=== PATIENT | male | born 1965 | race Hispanic/Latino ===

== ENCOUNTER 2022-08-30 05:56 | Observation (INO) | payer OTHER ==
--- NOTE | 2022-08-25 09:56 | RAD REPORT ---
EXAM DESCRIPTION: RAD - Chest Pa And Lat (2 Views) - 08/25/2022 9:46 am CLINICAL HISTORY: pre op for surgery Chest pain. COMPARISON: CHEST SINGLE VIEW dated 07/25/2013; CHEST SINGLE VIEW dated 11/28/2008 FINDINGS: There is a vague nodular appearing lesions seen in the left mid lung laterally. This appea rs new since 2014 comparative study. The heart is normal in size. No displaced fractures. IMPRESSION: New vague pulmonary nodular lesion in the lateral left mid lung. Recommend CT chest for further evaluation.
[2022-08-25 10:12] LABS: Specific Gravity 1.018 (1.005-1.030); Urine Bilirubin NEGATIVE (Negative); Urine Blood Negative (Negative); Urine Clarity Clear (Clear); Urine Color Light-Yellow (Yellow); Urine Glucose 1+ (Negative); Urine Protein NEGATIVE (Negative); Urine Urobilinogen Normal (Normal); Urine pH 5.5 (5.0-7.0)
[2022-08-25 10:16] LABS: Absolute Lymphocytes (CBC) 2.3 K/uL (0.7-4.9); Lymphocytes % 37.1 % (15.3-44.8); MCV 85.8 fL (80-100); MPV 10.6 fL (7.6-11.3); RBC Red Blood Cell Count 4.55 M/uL (4.33-5.43)
[2022-08-25 10:19] LABS: Protime INR 0.98
[2022-08-25 10:28] LABS: Albumin 3.8 g/dL (3.4-5.0); Bilirubin Total 0.7 mg/dL (0.2-1.0); Potassium 4.4 mEq/L (3.5-5.1); Protein, Total 7.6 g/dL (6.4-8.2)
--- NOTE | 2022-08-25 11:36 | EKG ---
Test Date: 2022-08-25 Test Time: 09:48:47 [place]ter: AMARIS MEASUREMENT RESULTS: Intervals: Rate: 82 IN: 124 QRSD: 80 QT: 352 QTc: 411 [place]: P: 44 IN: 124 QRS: 44 T: 26 INTERPRETIVE STATEMENTS: Normal sinus rhythm Low voltage QRS Borderline ECG Compared to ECG 07/25/2013 22:03:41 Low QRS voltage now present Electronically Signed On 08-25-22 11:35:25 CDT by Camron Vazquez
[2022-08-30] MEDS ORDERED: TRANEXAMIC ACID 1,000 MG/10 ML VIAL IV ONE (06:20)
[2022-08-30] MEDS ORDERED: BUPIVACAINE 0.75% (PF) 2 ML SP ONE (06:21)
[2022-08-30] MEDS ORDERED: EPINEPHRINE/PF 1 MG/ML AMP ONE (06:23)
[2022-08-30] MEDS ORDERED: CELECOXIB 100 MG CAPSULE ONE (06:23)
[2022-08-30] MEDS ORDERED: MORPHINE SULFATE/PF 1 MG/ML (10 ML AMP) ONE (06:23)
[2022-08-30] MEDS ORDERED: CEFAZOLIN SODIUM 2 GM/VIAL ONE (06:24)
[2022-08-30] MEDS ORDERED: GABAPENTIN 100 MG CAP ONE (06:24)
[2022-08-30] MEDS ORDERED: Oxycodone HCl/Acetaminophen 1 TAB TAB ONE (06:24)
[2022-08-30] MEDS ORDERED: ACETAMINOPHEN 500 MG TAB ONE (06:24)
[2022-08-30] MEDS ORDERED: NA CHLORIDE 0.9% 1,000 ML ONE ×3 (06:25→09:44)
[2022-08-30] MEDS ORDERED: MIDAZOLAM HCL 2 MG/2 ML INJ ONE (06:33)
[2022-08-30] MEDS ORDERED: LIDOCAINE 2% MPF 5 ML VIAL ONE (06:33)
[2022-08-30] MEDS ORDERED: propofoL 200 MG/20 ML VIAL IV ONE ×3 (06:33→09:14)
[2022-08-30] MEDS ORDERED: FENTANYL CITR 100 MCG/2 ML ONE (06:43)
[2022-08-30] MEDS ORDERED: Phenylephrine HCl 10 MG/ML 1 ML VIAL ONE ×2 (07:49→09:09)
[2022-08-30] MEDS ORDERED: ROCURONIUM 50 MG/5 ML VIAL IV ONE (08:14)
[2022-08-30] MEDS ORDERED: METOCLOPRAMIDE 10 MG/2mL INJ ONE (08:22)
--- NOTE | 2022-08-30 09:04 | RAD REPORT ---
EXAM DESCRIPTION: RAD - Hip Left 1 View - 08/30/2022 8:59 am CLINICAL HISTORY: Left hip surgery FINDINGS: Intraoperative film demonstrates hardware for left hip arthroplasty
[2022-08-30] MEDS ORDERED: EPHEDRINE SULF 50 MG/ML VIAL ONE (09:18)
[2022-08-30] MEDS ORDERED: KETOROLAC 30 MG/ML INJ ONE (09:50)
[2022-08-30] MEDS ORDERED: HYDROCODONE/APAP 7.5/325 MG TAB PO PRN (09:58)
[2022-08-30] MEDS ORDERED: DOCUSATE NA 100 MG CAP PO PRN (09:58)
--- NOTE | 2022-08-30 09:58 | P.BOP ---
Preoperative diagnosis: left hip arthritis after femoral neck malunion Postoperative diagnosis: same Primary procedure: left ROSA Estimated blood loss: 150 Anesthesia: General Transferred to: Recovery Room Condition: Good
[2022-08-30] MEDS ORDERED: DIPHENHYDRAMINE 50 MG/ML VIAL IV PRN (10:14)
--- OUTSIDE RECORDS SUMMARY | 2022-08-30 12:14 | XMS REPORT | Continuity of Care Document ---
:1965 Author Organization [facility] t Address [address] [place] [id number] Care Team Providers Name Role Phone Mohinder Willingham Attending Clinician Unavailable Problems This patient has no known problems. Allergies, Adverse Reactions, Alerts This patient has no known allergies or adverse reactions. Medications This patient has no known medications. Procedures This patient has no known procedures. Encounters Start End Encounter Admission Attending Care Care Encounter Source Date/Time Date/Time Type Type Clinicians Facility Department ID 2022-08-25 Outpatient HALEIGH Willingham [id number] Common 08:07:00 Mohinder [id number] [facility] Results This patient has no known results.
[2022-08-30 15:15] VITALS: BMI 34.4
[2022-08-30] MEDS: CEFAZOLIN 1 GM in NA CHLORIDE 0.9% 50 ML IVPB SCH (16:38)
[2022-08-30 16:40] LABS: Hematocrit 32.5 % (39.6-49.0)
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
[2022-08-31] MEDS: CEFAZOLIN 1 GM in NA CHLORIDE 0.9% 50 ML IVPB SCH ×2 (00:59→09:18)
[2022-08-31 05:06] VITALS: O2SAT 96
[2022-08-31 06:30] LABS: Hematocrit 30.9 % (39.6-49.0)
[2022-08-31] MEDS ORDERED: ENOXAPARIN 40 MG/0.4 ML SQ SCH (09:00)
[2022-08-31 16:06] VITALS: BP 134/65; TEMP 101.2
== END 2022-08-31 17:18 | disposition home or self-care (01) ==
LOC: OR 05:56 → 4TH 12:09
PROVIDERS: ADMIT Orthopaedic Surgery; ATTEND Orthopaedic Surgery
PROC: 0SRB0JA Replacement of Left Hip Joint with Synthetic Substitute, Uncemented, Open Approach (ICD-10-PCS; principal; 2022-08-30 07:00)
DX: M16.52 Unilateral post-traumatic osteoarthritis, left hip (principal)
CPT/HCPCS: 93005; 85025; 36415 ×2; 86900; 86850; 85610; 86901; 82947 ×4; 88305; 88311; 85730; 86920; 85018 ×2; 85014 ×2; 81003; 80053; 71046; 73501; 97110 ×2; 97116 ×2; 97161; 97530 ×2; 94760 ×3; 27130; J2704 ×3; J0171; J2765; J2370 ×2; J2001; J1650; J2250; J3010; J7030 ×3; J0690 ×3; G0378 ×3; 88304

== ENCOUNTER 2022-10-22 10:29 | Emergency (ER) | payer OTHER ==
--- OUTSIDE RECORDS SUMMARY | 2022-10-22 10:31 | XMS REPORT | Continuity of Care Document ---
:1965 Author Organization [facility] t Address [address] [place] [id number] Care Team Providers Name Role Phone Mohinder [...] Facility Department ID 2022-08-25 Outpatient HALEIGH Willingham [id number] Common 08:07:00 Mohinder [id number] [facility] Results This patient has no known results.
--- NOTE | 2022-10-22 11:38 | RAD REPORT ---
EXAM DESCRIPTION: RAD - Femur Left - 10/22/2022 11:25 am CLINICAL HISTORY: Left leg pain FINDINGS: Left hip prosthesis in place No acute fracture or dislocation Osteoporosis 6 centimeter bony density along medial upper left knee likely the sequela prior trauma
--- NOTE | 2022-10-22 12:56 | ER ---
Nurse's Notes [facility] Name: Lazaro Stephens Age: 57 yrs Sex: Male : 1965 Arrival Date: 10/22/2022 Time: 10:29 Bed 7 Private MD: Diagnosis: Fall (on) (from) unspecified stairs and steps;Pain in left knee;Unspecified injury of head, initial encounter Presentation: 10/22 10:32 Chief complaint: EMS states: fell going down 1ft step, had left hip replacement by Dr. elda Vazquez 08/29/22. Pt c/o pain to left knee, left hip, and left side of head, small hematoma noted to left side of head. 10:32 Coronavirus screen: At this time, the client does not indicate any symptoms associated aa5 with coronavirus-19. Ebola Screen: Patient denies travel to an Ebola-affected area in the 21 days before illness onset. Initial Sepsis Screen: Does the patient meet any 2 criteria? No. Patient's initial sepsis screen is negative. Does the patient have a suspected source of infection? No. Patient's initial sepsis screen is negative. Risk Assessment: Do you want to hurt yourself or someone else? Patient reports no desire to harm self or others. Onset of symptoms was October 22, 2022. 10:32 Acuity: ASHISH 3 aa5 10:32 Method Of Arrival: EMS: [facility] aa5 Historical: - Allergies: 10:46 No Known Allergies; aa5 - PMHx: 10:46 Diabetes mellitus; TBI; aa5 - PSHx: 10:46 L hip replacement 08/29/22; aa5 - Immunization history:: Adult Immunizations unknown. - Social history:: Smoking status: Patient denies any tobacco usage or history of. Screenin:35 [facility] ED Fall Risk Assessment (Adult) History of falling in the last 3 months, aa5 including since admission Yes- single mechanical fall (1 pt) Confusion or Disorientation No (0 pts) Intoxicated or Sedated No (0 pts) Impaired Gait Yes (1 pt) Mobility Assist Device Used Yes (1 pt) Altered Elimination No (0 pt) Score/Fall Risk Level 3 or more points = High Risk Oriented to surroundings, Maintained a safe environment, Educated pt \T\ family on fall prevention, incl call for assistance when getting out of bed. Abuse screen: Denies threats or abuse. Nutritional screening: No deficits noted. Tuberculosis screening: No symptoms or risk factors identified. Assessment: 10:32 General: Appears comfortable, Behavior is calm, cooperative. Pain: Complains of pain in aa5 left knee, left hip, and left side of head Quality of pain is described as aching, Pain began today post-fall Is continuous. Neuro: Level of Consciousness is awake, alert, obeys commands, Oriented to person, place, time, situation. Cardiovascular: Heart tones S1 S2 present Rhythm is regular. Respiratory: Airway is patent Respiratory effort is even, unlabored, Respiratory pattern is regular, symmetrical. GI: No signs and/or symptoms were reported involving the gastrointestinal system. : No signs and/or symptoms were reported regarding the genitourinary system. EENT: No signs and/or symptoms were reported regarding the EENT system. Derm: Skin is pink, warm \T\ dry. Musculoskeletal: Swelling present in left knee Reports pain in left knee and left hip. Injury Description: small hematoma (quater sized) with abrasion noted to left side of head. 12:00 Reassessment: Patient is alert, oriented x 3, equal unlabored respirations, skin aa5 warm/dry/pink. Pt requesting pain medication, will notify provider.. 14:06 Reassessment: Patient is alert, oriented x 3, equal unlabored respirations, skin aa5 warm/dry/pink. Vital Signs: 10:32 BP 151 / 103; Pulse 86; Resp 16 S; Temp 97.8(TE); Pulse Ox 97% on R/A; Weight 99.79 kg aa5 (R); Height 5 ft. 7 in. (R); 12:00 BP 138 / 67; Pulse 74; Resp 18 S; Pulse Ox 97% on R/A; aa5 14:00 BP 148 / 67; Pulse 73; Resp 17 S; Pulse Ox 98% on R/A; aa5 10:32 Body Mass Index 34.46 (99.79 kg, 170.18 cm) aa5 ED Course: 10:32 Patient arrived in ED. kj1 10:32 Arm band placed on Patient placed in an exam room, on a stretcher. aa5 10:32 Patient has correct armband on for positive identification. Bed in low position. Call aa5 light in reach. Side rails up X2. Adult w/ patient. 10:37 Lissa Eng [facility]-C [facility]. snw 10:37 Zeke Burris MD is Attending Physician. snw 10:44 Sobeida Nava, RN is Primary Nurse. aa5 10:46 Triage completed. aa5 11:27 Femur Left XRAY In Process Unspecified. EDMS 12:53 Ruel Vazquez MD is Referral Physician. snw 14:06 No provider procedures requiring assistance completed. Patient did not have IV access aa5 during this emergency room visit. Administered Medications: 12:58 Drug: Hydrocodone-Acetaminophen PO (7.5 mg-325 mg) 1 tabs Route: PO; aa5 14:06 Follow up: Response: No adverse reaction aa5 Medication: 12:36 VIS not applicable for this client. aa5 Outcome: 12:55 Discharge ordered by MD. snw 14:07 Discharged to home via wheelchair, with significant other. aa5 14:07 Condition: stable 14:07 Discharge instructions given to patient, significant other, Instructed on discharge instructions, follow up and referral plans. medication usage, Demonstrated understanding of instructions, follow-up care, medications, Prescriptions given X 1. 14:07 Patient left the ED. aa5 Signatures: Dispatcher [employer] EDMA Lissa Eng FNP-C MANAGER SALT-Csnw Sobeida Nava, RN RN aa5 Kiley Lara kj1 Corrections: (The following items were deleted from the chart) 10:47 10:46 PSHx: L hip; aa5 aa5
--- NOTE | 2022-10-22 12:56 | EDPHYS ---
Physician Documentation [facility] Name: Lazaro Stephens Age: 57 yrs Sex: Male : 1965 Arrival Date: 10/22/2022 Time: 10:29 Bed 7 Private MD: ED Physician Zeke Burris HPI: 10/22 10:47 This 57 yrs old Male presents to ER via EMS with complaints of Fall Injury. snw 10:47 Details of fall: The patient fell from a height, down approximately 1 stairs. Onset: snw The symptoms/episode began/occurred acutely, just prior to arrival. Associated injuries: The patient sustained injury to the head, contusion, left leg, decreased range of motion, swelling. pt had hip replacement on left one month ago per Dr. Vazquez, pt was ambulating with cane. Cane slipped and pt fell onto left side into living room, no LOC. as noted. Historical: - Allergies: 10:46 No Known Allergies; aa5 - PMHx: 10:46 Diabetes mellitus; TBI; aa5 - PSHx: 10:46 L hip replacement 08/29/22; aa5 - Immunization history:: Adult Immunizations unknown. - Social history:: Smoking status: Patient denies any tobacco usage or history of. ROS: 10:46 Constitutional: Negative for fever, chills, and weight loss, Eyes: Negative for injury, snw pain, redness, and discharge, ENT: Negative for injury, pain, and discharge, Neck: Negative for injury, pain, and swelling, Cardiovascular: Negative for chest pain, palpitations, and edema, Respiratory: Negative for shortness of breath, cough, wheezing, and pleuritic chest pain, Abdomen/GI: Negative for abdominal pain, nausea, vomiting, diarrhea, and constipation, Back: Negative for injury and pain, : Negative for injury, bleeding, discharge, and swelling, Skin: Negative for injury, rash, and discoloration, Neuro: Negative for headache, weakness, numbness, tingling, and seizure, Psych: Negative for depression, anxiety, suicide ideation, homicidal ideation, and hallucinations. 10:46 MS/extremity: Positive for injury or acute deformity, decreased range of motion, swelling, tenderness, of the left knee. Exam: 10:46 Constitutional: This is a well developed, well nourished patient who is awake, alert, snw and in no acute distress. Head/Face: Normocephalic, atraumatic. Eyes: Pupils equal round and reactive to light, extra-ocular motions intact. Lids and lashes normal. Conjunctiva and sclera are non-icteric and not injected. Cornea within normal limits. Periorbital areas with no swelling, redness, or edema. ENT: Nares patent. No nasal discharge, no septal abnormalities noted. Tympanic membranes are normal and external auditory canals are clear. Oropharynx with no redness, swelling, or masses, exudates, or evidence of obstruction, uvula midline. Mucous membranes moist. Neck: Trachea midline, no thyromegaly or masses palpated, and no cervical lymphadenopathy. Supple, full range of motion without nuchal rigidity, or vertebral point tenderness. No Meningismus. Chest/axilla: Normal chest wall appearance and motion. Nontender with no deformity. No lesions are appreciated. Cardiovascular: Regular rate and rhythm with a normal S1 and S2. No gallops, murmurs, or rubs. Normal PMI, no JVD. No pulse deficits. Respiratory: Lungs have equal breath sounds bilaterally, clear to auscultation and percussion. No rales, rhonchi or wheezes noted. No increased work of breathing, no retractions or nasal flaring. Abdomen/GI: Soft, non-tender, with normal bowel sounds. No distension or tympany. No guarding or rebound. No evidence of tenderness throughout. Back: No spinal tenderness. No costovertebral tenderness. Full range of motion. Skin: Warm, dry with normal turgor. Normal color with no rashes, no lesions, and no evidence of cellulitis. Neuro: Awake and alert, GCS 15, oriented to person, place, time, and situation. Cranial nerves II-XII grossly intact. Motor strength 5/5 in all extremities. Sensory grossly intact. Cerebellar exam normal. Normal gait. Psych: Awake, alert, with orientation to person, place and time. Behavior, mood, and affect are within normal limits. 10:46 Musculoskeletal/extremity: Extremities: grossly normal except: noted in the left quadriceps and left knee: decreased ROM, pain, swelling. Vital Signs: 10:32 BP 151 / 103; Pulse 86; Resp 16 S; Temp 97.8(TE); Pulse Ox 97% on R/A; Weight 99.79 kg aa5 (R); Height 5 ft. 7 in. (R); 12:00 BP 138 / 67; Pulse 74; Resp 18 S; Pulse Ox 97% on R/A; aa5 14:00 BP 148 / 67; Pulse 73; Resp 17 S; Pulse Ox 98% on R/A; aa5 10:32 Body Mass Index 34.46 (99.79 kg, 170.18 cm) aa5 MDM: 10:37 Patient medically screened. snw 10:48 Differential diagnosis: closed head injury, contusion, sprain, strain, femur fx. Data snw reviewed: vital signs, nurses notes. Historians other than the Patient: EMS: [facility] and Patient's . Counseling: I had a detailed discussion with the patient and/or guardian regarding: the historical points, exam findings, and any diagnostic results supporting the discharge/admit diagnosis, the presence of at least one elevated blood pressure reading (>120/80) during this emergency department visit. Awaiting: X-ray results, pt encouraged to let me know if he wants pain medication... for now, pt has declined. 12:55 Special discussion: I have referred the patient to see his PCP for further evaluation snw of high blood pressure. Based on the patient's history, exam and DX evaluation, there is no indication for emergent intervention or inpatient TX. It is understood by the patient/guardian that if the SXs persist or worsen they need to return immediately for re-evaluation. Based on the history and exam findings, there is no indication for further emergent testing or inpatient evaluation. I discussed with the patient/guardian the need to see the orthopedic surgeon for further evaluation of the symptoms. 10/22 10:45 Order name: Femur Left XRAY; Complete Time: 11:40 snw 10/22 13:49 Order name: Lucio wrap-joint; Complete Time: 14:06 snw Administered Medications: 12:58 Drug: Hydrocodone-Acetaminophen PO (7.5 mg-325 mg) 1 tabs Route: PO; aa5 14:06 Follow up: Response: No adverse reaction aa5 Disposition Summary: 10/22/22 12:55 Discharge Ordered Location: Home snw Condition: Stable snw Diagnosis - Fall (on) (from) unspecified stairs and steps snw - Pain in left knee snw - Unspecified injury of head, initial encounter snw Followup: snw - With: Emergency Department - When: As needed - Reason: Worsening of condition Followup: snw - With: Ruel Vazquez MD - When: 2 - 3 days - Reason: Recheck today's complaints, Continuance of care, Re-evaluation by your physician Discharge Instructions: - Discharge Summary Sheet snw - Joint Pain snw - Head Injury, Adult snw - How to Use a Knee Brace snw - Acute Knee Pain, Adult snw - How to Use Cold Therapy snw Forms: - Medication Reconciliation Form snw - Thank You Letter snw - Antibiotic Education snw - Prescription Opioid Use snw Prescriptions: - Tramadol 50 mg Oral Tablet - take 1 tablet by ORAL route every 8 hours as needed; 12 tablet; Refills: 0, snw Product Selection Permitted Signatures: Dispatcher [employer] EDNH Lissa Eng, ARABELLA-C TIMBER SELECTOR-[place] Sobeida Nava RN RN aa5 Corrections: (The following items were deleted from the chart) 10:47 10:46 PSHx: L hip; aa5 aa5 12:58 11:44 Knee Immobilizer ordered. snw aa5
[2022-10-22] MEDS ORDERED: HYDROCODONE/APAP 7.5/325 MG TAB ONE (13:00)
[2022-10-22 14:12] VITALS: TEMP 97.8
[2022-10-22 14:14] VITALS: BP 148/67; O2SAT 98
== END 2022-10-22 14:07 | disposition home or self-care (01) ==
LOC: ER 10:29
DX: M25.562 Pain in left knee (principal); S09.90XA Unspecified injury of head, initial encounter; W10.9XXA Fall (on) (from) unspecified stairs and steps, initial encounter; Z96.642 Presence of left artificial hip joint
CPT/HCPCS: 99284

== ENCOUNTER 2023-09-05 10:57 | Emergency (ER) | payer OTHER ==
--- OUTSIDE RECORDS SUMMARY | 2023-09-05 10:59 | XMS REPORT | Continuity of Care Document ---
Author Name Unknown Address [address] [facility] [address] [place] [address] [facility] thconnect Address [address] [facility] [place] [address] Care Team Providers Care Bilingual Sales Representative Name Role Phone LANCE PEARSON Primary Care Physician Unavaila Mohinder Maurice Attending Clinician Unavailable Keyona Puente MD Attending Clinician KEYONA PUENTE Attending Clinician UnavailKEYONA Hair Attending Clinician Unavailkarime tay Lab, Ang - Db Attending Clinician Unavailable Doctor Unassigned, Emet Attending Clinician U Otoniel Tipton Attending Clinician OTONIEL SAGE Attending Clinician Unavailable OTONIEL SAGE Admitting Clinician Unavailable Payers Payer Name Policy Type Policy Number Effective Date Expirati on Date Source Allergies, Adverse Reactions, Alerts Allergy Name Allergy Type Status Severity Reaction(s) Onset Date Inactive Date Treating Clinician Comments Source NO KNOWN ALLERGIE S Drug Class Active [facility] Social History Social Habit Start Date Stop Date Quantity Comments Source Sexual orientation U [facility] History of Social function 2023-07-03 00:00:00 2023-07-03 00:00:00 [facility] Sex Assigned At 1965 00:00:00 1965 00:00:00 [facility] Smoking Status Start Date Stop Date Source Tobacco smoking consumption unknown [facility] Medications Ordered Medication Name Filled Medication Name Start Date Stop Date Current Medication? Ordering Clinician Indication Dosage Frequency Signature (SIG) Comments Components Source diclofenac 75 mg EC tablet 07-20 00:00: 00 Yes 75mg Take 1 tablet by mouth in the morning and 1 tablet in the evening. Take with meals. [facility] diclofenac 75 mg EC tablet 07-18 00:00: 00 Yes 75mg Take 1 tablet by mouth in the morning and 1 tablet in the evening. Take with meals. [facility] ibuprofen 600 mg tablet 10-23 00:00: 00 Yes [id number] 600mg Take 1 tablet by mouth every 8 (eight) hours as needed for Pain (scale 4-6). [facility] Immunizations Ordered Immunization Name Filled Immunization Name Date Status Comments Source SARS-COV-2 COVID-19 PFIZER VACCINE 2020-08-08 00:00:00 Completed [facility] SARS-COV-2 COVID-19 PFIZER VACCINE 2020-07-18 00:00:00 Completed [facility] SARS-COV-2 COVID-19 PFIZER VACCINE Unknown Completed [facility] SARS-COV-2 COVID-19 PFIZER VACCINE Unknown Completed [facility] SARS-COV-2 COVID-19 PFIZER VACCINE Unknown Completed [facility] SARS-COV-2 COVID-19 PFIZER VACCINE Unknown Completed [facility] SARS-COV-2 COVID-19 PFIZER VACCINE Unknown Completed [facility] SARS-COV-2 COVID-19 PFIZER VACCINE Unknown Completed [facility] SARS-COV-2 COVID-19 PFIZER VACCINE Unknown Completed [facility] SARS-COV-2 COVID-19 PFIZER VACCINE Unknown Completed [facility] SARS-COV-2 COVID-19 PFIZER VACCINE Unknown Completed [facility] SARS-COV-2 COVID-19 PFIZER VACCINE Unknown Completed [facility] SARS-COV-2 COVID-19 PFIZER VACCINE Unknown Completed [facility] SARS-COV-2 COVID-19 PFIZER VACCINE Unknown Completed [facility] SARS-COV-2 COVID-19 PFIZER VACCINE Unknown Completed [facility] SARS-COV-2 COVID-19 PFIZER VACCINE Unknown Completed [facility] SARS-COV-2 COVID-19 PFIZER VACCINE Unknown Completed [facility] SARS-COV-2 COVID-19 PFIZER VACCINE Unknown Completed [facility] SARS-COV-2 COVID-19 PFIZER VACCINE Unknown Completed [facility] SARS-COV-2 COVID-19 PFIZER VACCINE Unknown Completed [facility] Vital Signs Vital Name Observation Time Observation Value Comments S karlee Body height 2023-07-19 20:27:00 170.2 cm [facility] Body weight 2023-07-19 20:27:00 96.616 kg [facility] BMI 2023-07-19 20:27:00 33.36 kg/m2 [facility] Body height 2023-07-03 22:07:00 170.2 cm [facility] Body weight 2023-07-03 22:07:00 90.719 kg [facility] BMI 2023-07-03 22:07:00 31.32 kg/m2 [facility] Systolic blood pressure 2022-10-24 01:45:00 146 mm[Hg] [facility] Diastolic blood pressure 2022-10-24 01:45:00 83 mm[Hg] [facility] Heart rate 2022-10-24 01:45:00 85 /min [facility] Respiratory rate 2022-10-24 01:45:00 18 /min [facility] Oxygen saturation in Arterial blood by Pulse oximetry 2022-10-24 01:45:00 98 /min [facility] Body temperature 2022-10-23 22:20:00 36.78 Mary Kay [facility] Body height 2022-10-23 22:20:00 170.2 cm [facility] Body weight 2022-10-23 22:20:00 99.791 kg [facility] BMI 2022-10-23 22:20:00 34.46 kg/m2 [facility] Procedures Procedure Date / Time Performed Performing Clinicia n Source ASSIGNMENT OF BENEFITS 2023-07-03 22:03:43 Docto r Unassigned, Emet [facility] NOTICE OF PRIVACY PRACTICES 2022-10-23 22:16:49 Doctor Unassigned, Emet [facility] CONSENT/REFUSAL FOR DIAGNOSIS AND TREATMENT 2022-10-23 22:16:31 Doctor Unassigned, Emet [facility] Encounters Start Date/Time End Date/Time Encounter Type Admission Type Attending [facility] Facility Care Department Encounter ID Source 2022-11-11 08:49:01 [facility] [id number] [facility] 2022-08-25 08:07:00 [facility] [id number] [facility] 2023-07-20 00:00:00 2023-07-20 00:00:00 Telephone Keyona Puente [facility] 1.2.840.114 350.1.13.10 4.2.7.2.686 [id number] [facility] 2023-07-19 16:15:00 2023-07-19 16:15:00 Office Visit Keyona Puente [facility] 1.2.840.114 350.1.13.10 4.2.7.2.686 [id number] [facility] 2023-07-19 16:15:00 2023-07-19 16:06:21 Outpatient KEYONA MONTANO [facility] [id number] [facility] 2023-07-13 15:15:00 2023-07-13 15:15:00 Outpatient KEYONA MONTANO [facility] [id number] [facility] 2023-07-12 15:00:00 2023-07-12 15:00:00 Outpatient KEYONA MONTANO [facility] [id number] [facility] 2023-07-04 14:45:00 2023-07-04 15:00:00 Injection Molding Operator Visit Lab, Ang - Db [facility]ente, [facility] 1.2840.114 350.1.13.10 4.2.7.2.686 [id number] [facility] 2023-07-04 14:45:00 2023-07-04 14:45:00 Outpatient R KEYONA PUENTE C[facility]IG [facility] [id number] [facility] 2023-07-03 16:33:27 2023-07-03 23:59:00 Outpatient R KEYONA PUENTE [facility] [id number] [facility] 2023-07-03 16:33:27 2023-07-03 23:59:00 [facility] 1.2840.114 350.1.13.10 4.2.7.2.686 [id number] [facility] 2023-07-03 16:06:24 2023-07-03 16:32:00 Hospital Encounter Keyona Puente [facility] ANGELIQUE?[facility] 1.2.840.114 350.1.13.10 4.2.7.2.686 [id number] [facility] 2023-07-03 15:30:00 2023-07-03 15:45:00 Office Visit Keyona Puente [facility] 1.2840.114 350.1.13.10 4.2.7.2.686 [id number] [facility] 2023-07-03 00:00:00 2023-07-03 00:00:00 Orders Only Doctor Unassigned, Emet [facility] 1.2840.114 350.1.13.10 4.2.7.2.686 [id number] [facility] 2022-10-23 17:21:00 2022-10-23 20:59:00 Emergency Otoniel Sage [facility] 1.2.840.114 350.1.13.10 4.2.7.2.686 [id number] [facility] 2022-10-23 17:21:00 2022-10-23 20:59:00 Emergency X OTONIEL SAGE [facility] ERT [id number] [facility] 2009-07-21 00:00:00 2009-07-21 15:33:48 Outpatient [facility] [id number] [facility] Notes Date/Time Note Provider Source 2023-07-21 09:30:23 kISfglpWLky68JDr28Az YC5+tn+Ly5YX0g dO9CuKFjIGCfoRYzcBTqez52rYquXu6804 -03-22T09:30:23 Meds sent to [facility] 17070-3Zxactsaam encounter RhozGY6924-04-78U14:30:34Telephone encounter NoteTXT1.2.840.066053.1.13.104.2.7 .2.417090|[id number] for patient dkae55157-4CdpkEGLFYZVWZGBXcrsydhp d C-CDA narrative [id number] N Davis MA[address] Md[id number] 40SGGBHAVJJVTTIZKBVWGEIV4340-31-97 T09:30:341.2.840.053018.1.72.3.15| 1.2.840.403704.1.13.104.2.7.2.7278 [id number] Kimi Puckett MA [facility] 2023-07-20 16:39:57 kLAgTnWSu9CL+Hd3GoQx izap4jCeW23m4H rg5J8P09aCY+2LFZQY1zeDKAU8wngA3308 -03-21T16:39:57 Donte Stephens is a 57 year old malePt Rx was mistakenly sent to a pharm in [place].Please send Rx diclofenac 75 mg EC tabletTo [facility] [id number] [address] Apo: [phone] signed by Maria Elena Sandoval at 07/20/2023 4:43 PM SGV95456-2Besaphiji encounter KywtDM2233-21-76K39:43:32Telephone encounter NoteTXT1.2.840.300236.1.13.104.2.7 .2.399456|[id number] for patient kasr43599-7YakqMDHKJIOHQTQQqhgrmmk d C-CDA narrative text[address] Iu[id number] 48UJMSLVGYWSBWPOYOJVEAAW9621-64-26 T16:43:321.2.840.041458.1.72.3.15| 1.2.840.046467.1.13.104.2.7.2.7278 [id number] [facility] 2023-07-04 14:45:00 OTekV0MEQVY7lJt9GRsd /pCMMfp8oxLwue JH0pnYP04p4qOeBwLfeXVQvKmH0pN16914 -03-05T14:45:00 Images from the original note were not included.Venipuncture collection performed by clean technique on the right anticubitus. Total of 1 attempts were made. Slight pressure and a bandage/dressing were applied to the site(s). The patient experienced no complications. The following specimens were processed according to instructions and sent to [facility] laboratories per lab order on 07/04/2023:LT BLUESST 1REDLAV 1PPTDK GREEN (LiHep)DK GREEN (SodH)GRAYDK BLUE (K2)DK BLUE (S)ACDBlood CultureNIPT/NTD 23868-9Veced UwxvVG2578-54-48Q02:57:02Nurse NoteTXT1.2.840.281636.1.13.104.2.7 .2.299710|[id number] for patient zlyo43169-8Aoded NoteLNNARRATIVEFormatted C-CDA narrative textUT[address] RbbwT[id number] 82JCMDQWQMVZZBEEYCOADZFU3114-98-59 T14:57:021.2.840.431967.1.72.3.15| 1.2.840.575530.1.13.104.2.7.2.7278 [id number] [facility]"
[2023-09-05] MEDS ORDERED: MORPHINE 4 MG/ML SYR ONE ×2 (11:45→15:05)
[2023-09-05 11:49] LABS: Absolute Lymphocytes (CBC) 0.8 K/uL (0.7-4.9); Absolute Monocytes 0.5 K/uL (0.1-1.3); Hematocrit 35.7 % (39.6-49.0); Hemoglobin 11.9 g/dL (13.6-17.9); Lymphocytes % 6.2 % (15.3-44.8); MCH 28.9 pg (27.0-35.0); MCHC 33.5 g/dL (32.0-36.0); MCV 86.4 fL (80-100); MPV 10.2 fL (7.6-11.3); Monocytes % 3.7 % (3.3-12.3); Neutrophils % 90.1 % (41.7-73.7); Platelets 171 thou/uL (152-406); RBC Red Blood Cell Count 4.13 M/uL (4.33-5.43); Red Cell Distribution Width 14.4 % (12.1-15.2)
[2023-09-05 12:04] LABS: Anion Gap 4.1 mEq/L (5.0-15.0); Potassium 4.1 mEq/L (3.5-5.1)
[2023-09-05 12:58] LABS: Blood Morphology Comment NOT SEEN (NOT SEEN); Platelet Estimate ADEQ; White Blood Cell Scan OK (OK)
--- NOTE | 2023-09-05 13:15 | RAD REPORT ---
EXAM DESCRIPTION: RADChest Single View09/05/2023 12:43 pm CLINICAL HISTORY: fall COMPARISON: Chest Pa And Lat (2 Views) dated 08/25/2022; CHEST SINGLE VIEW dated 07/25/2013; CHEST SIN GLE VIEW dated 11/28/2008 TECHNIQUE: Portable AP view of the chest. FINDINGS: The lungs are clear. No pneumothorax or effusion. The cardiomediastinal contours are unre markable. Stable deformities along the posterior right ribs, likely relating to healed fractures. IMPRESSION: No acute cardiopulmonary process.
--- NOTE | 2023-09-05 13:17 | RAD REPORT ---
EXAM DESCRIPTION: RAD - Femur Left - 09/05/2023 12:43 pm CLINICAL HISTORY: L femur injury COMPARISON: Femur Left dated 10/22/2022 TECHNIQUE: Left femur, 2 views. FINDINGS: Left total hip arthroplasty in place. Displaced proximal femoral metaphysis fracture study just below the level of the intertrochanteric junction, with an oblique component extending approxim ately to the level of the lower tip of the femoral stem. There is no dislocation or periosteal react ion noted. Advanced degenerative changes at the level of the knee with osteopenia again seen. No acut e or suspicious bony finding. IMPRESSION: Oblique displaced proximal femoral fracture as above.
--- NOTE | 2023-09-05 13:20 | RAD REPORT ---
EXAM DESCRIPTION: Pelvis - 09/05/2023 12:42 pm CLINICAL HISTORY: L hip injury COMPARISON: No comparisons TECHNIQUE: Internal and external rotation views of the right shoulder were obtained. FINDINGS: Proximal left femoral fracture is better visualized on dedicated left femoral radiographs. Visualized pelvic ring is intact. Left total hip arthroplasty in satisfactory position. There is no other acute fracture or dislocation. AC joint is normal in appearance. Mild right hip joint degenerat tamar changes. No acute or suspicious findings. IMPRESSION: Proximal left femoral fracture is better visualized on dedicated left femoral radiograph s. No other acute findings.
--- NOTE | 2023-09-05 13:55 | EDPHYS ---
Physician Documentation [facility] Name: Lazaro Stephens Age: 58 yrs Sex: Male : 1965 Arrival Date: 09/05/2023 Time: 10:57 Bed 19 Private MD: ED Physician Maverick Avendano HPI: 09/04 11:27 This 58 yrs old Male presents to ER via Ambulatory with complaints of Fall ec2 Injury. 11:27 Patient arrives today for evaluation after a fall. States that he had fallen and ec2 injured his left hip. Patient reports history of arthroplasty. Patient reports no head strike, no LOC, no blood thinners. Patient reports no chest pain or difficulty breathing, denies abdominal pain or nausea or vomiting.. Historical: - Allergies: 11:08 No Known Allergies; nj1 - PMHx: 11:08 diabetes mellitus; TBI; Hypertensive disorder; nj1 - PSHx: 11:08 L hip replacement 08/29/22; nj1 - Immunization history:: Client reports receiving the 2nd dose of the Covid vaccine. - Infectious Disease History:: Denies. - Social history:: Smoking status: Patient denies any tobacco usage or history of. ROS: 11:27 Constitutional: as per hpi ec2 Exam: 11:27 Constitutional: GEN: NAD Head: atraumatic Eyes: EOMI Ears: External ears are ec2 normal. CV: regular rate LUNGS: no respiratory distress ABD: non-distended SKIN: no evidence of rashes MSK: Left hip TTP, left proximal femur TTP, intact distal neurovascular status, no obvious deformities or dislocations evident. NEURO: moves all extremities equally Vital Signs: 10:59 BP 160 / 69; Pulse 77; Resp 18; Temp 97.9(O); Pulse Ox 97% on R/A; Weight 99.79 kg; nj1 Height 5 ft. 7 in. ; Pain 10/10; 12:00 BP 143 / 69; Pulse 80; Resp 16; Pulse Ox 100% ; nj1 12:45 Pain 5/10; nj1 12:46 BP 138 / 73; Pulse 72; Resp 17; Pulse Ox 100% ; nj1 14:26 BP 151 / 79; Pulse 102; Resp 17; Pulse Ox 100% ; nj1 10:59 Body Mass Index 34.46 (99.79 kg, 170.18 cm) nj1 10:59 Pain Scale: Adult nj1 12:45 Pain Scale: Adult nj1 MDM: 11:26 Patient medically screened. ec2 11:27 Data reviewed: vital signs. ED course: Patient arrives today for evaluation of a left ec2 hip injury. Examination remarkable for well-appearing nontoxic dividual is otherwise in no acute distress with a reassuring examination. Will obtain radiographs of the left hip and femur. Evaluating for bony fracture, contusion. Doubt C-spine injury or L-spine injury given lack of pain at these areas.. 13:30 ED course: Pelvis x-ray and femur x-ray show proximal femur fracture, within the ec2 instrumentation. . 13:53 ED course: I discussed case with Dr. Vazquez, orthopedics who recommends transfer. He ec2 was initial surgeon who performed the prosthesis.. 09/04 11:27 Order name: CBC with Diff; Complete Time: 13:00 ec2 09/04 11:27 Order name: BMP; Complete Time: 12:10 ec2 09/04 12:59 Order name: CBC Smear Scan; Complete Time: 13:00 EDMS 09/04 11:27 Order name: Pelvis XRAY; Complete Time: 13:28 ec2 09/04 11:27 Order name: Femur Left XRAY; Complete Time: 13:28 ec2 09/04 12:36 Order name: CXR XRAY; Complete Time: 13:28 ec2 Administered Medications: 11:51 Drug: morphine IVP or IV 4 mg IVP once over 4 mins Route: IVP; Infused Over: 4 mins; nj1 Site: left forearm; 12:45 Follow up: Pain 5/10 Adult; Response: No adverse reaction; Pain is decreased nj1 15:09 Drug: morphine IVP or IV 4 mg IVP once over 4 mins Route: IVP; Infused Over: 4 mins; kc6 Site: right forearm; Disposition Summary: 09/05/23 13:54 Transfer Ordered Notes: Transfer Location: Other Acute Care Facility ec2 Reason: Higher level of care ec2 Condition: Stable ec2 Problem: new ec2 Symptoms: have improved ec2 Accepting Physician: transferring doc(09/05/23 15:13) kc6 Diagnosis - Fracture of shaft of femur ec2 - Intertrochanteric fracture of femur ec2 Forms: - Medication Reconciliation Form ec2 - SBAR form ec2 Signatures: Dispatcher [employer] EDBernie Dumont RN RN kc6 Laxmi Mares RN RN nj1 Maverick Avendano MD MD ec2 Corrections: (The following items were deleted from the chart) 11:27 11:27 Femur Left+RAD.RAD.BRZ ordered. EDMS EDMS 12:36 12:36 Chest Single View+RAD.RAD.BRZ ordered. EDMS EDMS 15:13 13:54 transferring doc ec2 kc6
--- NOTE | 2023-09-05 13:55 | ER ---
Nurse's Notes [facility] Name: Lazaro Stephens Age: 58 yrs Sex: Male : 1965 Arrival Date: 09/05/2023 Time: 10:57 Bed 19 Private MD: Diagnosis: Fracture of shaft of femur;Intertrochanteric fracture of femur Presentation: 09/04 10:59 Chief complaint: EMS states: Fall this morning at home. Complaining of left upper leg nj1 pain. 10:59 Coronavirus screen: Vaccine status: Patient reports receiving the 2nd dose of the covid nj1 vaccine. Ebola Screen: Patient denies travel to an Ebola-affected area in the 21 days before illness onset. Initial Sepsis Screen: Does the patient meet any 2 criteria? No. Patient's initial sepsis screen is negative. Does the patient have a suspected source of infection? No. Patient's initial sepsis screen is negative. Risk Assessment: Do you want to hurt yourself or someone else? Patient reports no desire to harm self or others. Onset of symptoms was September 05, 2023 at 06:00. 10:59 Method Of Arrival: Ambulatory [facility] 10:59 Acuity: ASHISH 3 [facility] Historical: - Allergies: 11:08 No Known Allergies; nj1 - PMHx: 11:08 diabetes mellitus; TBI; Hypertensive disorder; nj1 - PSHx: 11:08 L hip replacement 08/29/22; nj1 - Immunization history:: Client reports receiving the 2nd dose of the Covid vaccine. - Infectious Disease History:: Denies. - Social history:: Smoking status: Patient denies any tobacco usage or history of. Screenin:12 [facility] ED Fall Risk Assessment (Adult) History of falling in the last 3 months, [facility] including since admission No falls in past 3 months (0 pts) Confusion or Disorientation No (0 pts) Intoxicated or Sedated No (0 pts) Impaired Gait No (0 pts) Mobility Assist Device Used No (0 pt) Altered Elimination No (0 pt) Score/Fall Risk Level 0 - 2 = Low Risk Oriented to surroundings, Maintained a safe environment, Hourly rounding (assess needs \T\ fall precautionary measures) done. Abuse screen: Denies threats or abuse. Denies injuries from another. Nutritional screening: No deficits noted. Tuberculosis screening: No symptoms or risk factors identified. Assessment: 11:09 General: Appears in no apparent distress. comfortable, Behavior is calm, cooperative, nj1 appropriate for age. Pain: Complains of pain in left leg Pain currently is 10 out of 10 on a pain scale. Neuro: Level of Consciousness is awake, alert, obeys commands, Oriented to person, place, time, situation, Denies dizziness. Cardiovascular: Patient's skin is warm and dry. Respiratory: Airway is patent Respiratory effort is even, unlabored. Musculoskeletal: Reports pain in upper leg, left. 12:47 Reassessment: Patient appears in no apparent distress at this time. Patient and/or nj1 family updated on plan of care and expected duration. Pain level reassessed. Patient is alert, oriented x 3, equal unlabored respirations, skin warm/dry/pink. 14:27 Reassessment: Patient appears in no apparent distress at this time. Patient and/or nj1 family updated on plan of care and expected duration. Pain level reassessed. Patient is alert, oriented x 3, equal unlabored respirations, skin warm/dry/pink. 14:57 Reassessment: EMS here to transport patient. Report given to Otis Solano EMT. [facility] Vital Signs: 10:59 BP 160 / 69; Pulse 77; Resp 18; Temp 97.9(O); Pulse Ox 97% on R/A; Weight 99.79 kg; nj1 Height 5 ft. 7 in. ; Pain 10/10; 12:00 BP 143 / 69; Pulse 80; Resp 16; Pulse Ox 100% ; nj1 12:45 Pain 5/10; nj1 12:46 BP 138 / 73; Pulse 72; Resp 17; Pulse Ox 100% ; nj1 14:26 BP 151 / 79; Pulse 102; Resp 17; Pulse Ox 100% ; nj1 10:59 Body Mass Index 34.46 (99.79 kg, 170.18 cm) nj1 10:59 Pain Scale: Adult nj 12:45 Pain Scale: Adult [facility] ED Course: 11:06 Patient arrived in ED. nj1 11:08 Triage completed. nj1 11:09 Arm band placed on right wrist. nj1 11:11 Maverick Avendano MD is Attending Physician. 2 11:12 Laxmi Mares RN is Primary Nurse. nj1 11:13 Patient has correct armband on for positive identification. Bed in low position. Call nj1 light in reach. Provided Education on: call light, fall precautions. 11:43 BMP Sent. bc6 11:43 CBC with Diff Sent. bc6 11:43 Initial lab(s) drawn, by me, sent to lab. Inserted saline lock: 22 gauge in right bc6 forearm, using aseptic technique. Blood collected. 12:44 Pelvis XRAY In Process Unspecified. EDMS 12:44 Femur Left XRAY In Process Unspecified. EDMS 12:44 CXR XRAY In Process Unspecified. EDMS 13:43 initiated transfer to [facility]. bd 14:38 pt accepted in transfer to [facility] ER by Dr Wilson, admin approval given by Maria Elena duncan RN. pt will be transported by [facility]. 14:40 No provider procedures requiring assistance completed. Patient transferred, IV remains nj1 in place. Administered Medications: 11:51 Drug: morphine IVP or IV 4 mg IVP once over 4 mins Route: IVP; Infused Over: 4 mins; nj1 Site: left forearm; 12:45 Follow up: Pain 5/10 Adult; Response: No adverse reaction; Pain is decreased nj1 15:09 Drug: morphine IVP or IV 4 mg IVP once over 4 mins Route: IVP; Infused Over: 4 mins; kc6 Site: right forearm; Medication: 14:40 VIS not applicable for this client. nj1 Outcome: 13:54 ER care complete, transfer ordered by . ec2 14:30 Transferred by ground EMS to [facility], Transfer form completed. Note: nj1 Report given to Evy RODRIGUEZ 14:30 Condition: stable nj 14:30 Instructed on the need for transfer, 15:13 Patient left the ED. kc6 Signatures: Dispatcher [employer] EDMS Velia Randle Kaitlyn, RN RN kc6 Trice Dunne [facility] Laxmi Mares RN RN nj1 Maverick Avendano MD MD ec2 Corrections: (The following items were deleted from the chart) 14:43 14:30 Transferred by ground EMS to [facility], Transfer form nj1 completed. Note: Report given to Evy RODRIGUEZ nj1
[2023-09-05 15:27] VITALS: BP 151/79; TEMP 97.9; O2SAT 100
== END 2023-09-05 15:13 ==
LOC: ER 10:57
DX: S72.142A Displaced intertrochanteric fracture of left femur, initial encounter for closed fracture (principal); M97.12XA Periprosthetic fracture around internal prosthetic left knee joint, initial encounter; W18.30XA Fall on same level, unspecified, initial encounter; Z96.652 Presence of left artificial knee joint
CPT/HCPCS: 36415; 71045; 72170; 80048; 85025